=== PATIENT | male | born 1980 | race Hispanic/Latino ===

== ENCOUNTER 2024-06-06 15:36 | Observation (INO) | payer SELFPAY ==
[2024-06-06] MEDS ORDERED: Lidocaine 1% PF 5 ML VIAL ONE (15:55)
[2024-06-06] MEDS ORDERED: CEFAZOLIN 1 GM VIAL ONE (17:41)
[2024-06-06] MEDS ORDERED: Sodium Chloride 0.9% 100 ML ONE (17:41)
[2024-06-06 18:09] LABS: #Basophils 0.04 10x3/uL (0.0-0.2); %Basophils 0.4 % (0.0-1.0); %Eosinophils 1.7 % (0.0-10.0); %Lymphocytes 21.7 % (21.0-51.0); %Monocytes 5.5 % (0.0-10.0); %Neutrophils 70.5 % (42.0-75.0); Hemoglobin 13.9 g/dL (14.0-18.0); Mean Corpuscular HGB CONC 33.1 g/dL (32.0-36.0); Mean Corpuscular Hemoglobin 29.8 pg (27.0-31.0); Mean Corpuscular Volume 90.1 fL (78.0-98.0); Mean Platelet Volume 10.4 fL (7.4-10.4); Platelet Count 324 10x3/uL (130-400); RBC Distribution Width 13.8 % (11.5-14.5); Red Blood Cell (RBC) Count 4.66 mill/uL (4.70-6.10)
[2024-06-06 18:22] LABS: INR-International Normal Ratio 1.1
[2024-06-06 18:24] LABS: ALT (SGPT) 122 U/L (8-55); AST (SGOT) 47 U/L (5-34); Albumin 3.9 g/dL (3.5-5.0); Alkaline Phosphatase 93 U/L (40-110); Anion Gap 12 mmol/L (10-20); BUN (Urea Nitrogen) 13 mg/dL (8.9-20.6); Bilirubin, Total 0.6 mg/dL (0.2-1.2); Calc. Creatinine Clearance 0 mL/min (70-130); Calcium 9.1 mg/dL (7.8-10.44); Carbon Dioxide 25 mmol/L (22-29); Chloride 107 mmol/L (98-107); Estimated GFR 112; Globulin 3.2 g/dL (2.4-3.5); Glucose 100 mg/dL (70-105); Potassium 3.8 mmol/L (3.5-5.1); Protein, Total 7.1 g/dL (6.0-8.3); Sodium 140 mmol/L (136-145)
[2024-06-06] MEDS ORDERED: Dextrose 5% in Water 1,000 ML IV PRN (18:35)
[2024-06-06] MEDS ORDERED: Promethazine HCl 25 MG/ML VIAL IM PRN (18:35)
[2024-06-06] MEDS ORDERED: traMADol HCl 50 MG TAB PO PRN (18:35)
[2024-06-06] MEDS ORDERED: Glucagon 1 MG/ML KIT IM PRN (18:35)
[2024-06-06] MEDS ORDERED: hydrALAZINE 20 MG/ML VIAL SLOW IVP PRN (18:35)
[2024-06-06] MEDS ORDERED: Dextrose 50% Abboject 50 ML SYRINGE SLOW IVP PRN (18:35)
[2024-06-06] MEDS ORDERED: Ondansetron PF 4 MG/2 ML Vial IVP PRN (18:35)
[2024-06-06] MEDS ORDERED: Morphine 2 MG/ML VIAL SLOW IVP PRN (18:35)
[2024-06-06 19:49] VITALS: BMI 38.0
[2024-06-06] MEDS: Famotidine/PF 20 mg/2ml Vial SLOW IVP SCH (19:59)
[2024-06-06] MEDS: GENTAMICIN SULFATE IVPB SCH (19:59)
[2024-06-06] MEDS: ADMIXTURE FEE IVPB SCH (19:59)
[2024-06-06] MEDS: SODIUM CHLORIDE IVPB SCH (19:59)
[2024-06-06] MEDS: Sodium Chloride 0.9% 1,000 ML IV SCH (19:59)
[2024-06-06] MEDS: CEFAZOLIN 2 GM in Sodium Chloride 0.9% 100 ML IVPB SCH (21:35)
[2024-06-07] MEDS: Acetaminophen 325 MG TAB PO PRN (05:28)
[2024-06-07 07:04] LABS: #Basophils 0.04 10x3/uL (0.0-0.2); %Basophils 0.5 % (0.0-1.0); %Eosinophils 2.4 % (0.0-10.0); %Lymphocytes 26.7 % (21.0-51.0); %Neutrophils 63.2 % (42.0-75.0); Hematocrit 41.9 % (42.0-52.0); Hemoglobin 13.8 g/dL (14.0-18.0); Mean Corpuscular HGB CONC 32.9 g/dL (32.0-36.0); Mean Corpuscular Hemoglobin 29.6 pg (27.0-31.0); Mean Corpuscular Volume 89.9 fL (78.0-98.0); Mean Platelet Volume 10.4 fL (7.4-10.4); Platelet Count 326 10x3/uL (130-400); RBC Distribution Width 13.9 % (11.5-14.5); Red Blood Cell (RBC) Count 4.66 mill/uL (4.70-6.10)
[2024-06-07 07:46] LABS: Anion Gap 11 mmol/L (10-20); BUN (Urea Nitrogen) 8 mg/dL (8.9-20.6); Calc. Creatinine Clearance 195 mL/min (70-130); Calcium 8.7 mg/dL (7.8-10.44); Carbon Dioxide 25 mmol/L (22-29); Chloride 108 mmol/L (98-107); Estimated GFR 111; Glucose 102 mg/dL (70-105); Potassium 3.9 mmol/L (3.5-5.1); Sodium 140 mmol/L (136-145)
[2024-06-07] MEDS ORDERED: Bupivacaine PF 0.5% 30 ML VIAL ONE (07:47)
[2024-06-07] MEDS ORDERED: Bacitracin Zinc Ointment 30 gm TUBE ONE (07:47)
[2024-06-07] MEDS ORDERED: Midazolam HCl 2 mg/2 ml Vial ONE (11:33)
[2024-06-07] MEDS ORDERED: fentaNYL 50 mcg/mL 1 mL Vial ONE (11:33)
[2024-06-07] MEDS ORDERED: Ketorolac Tromethamine 30 MG (1 mL) VIAL ONE (12:39)
[2024-06-07] MEDS ORDERED: ADMIXTURE FEE IVPB SCH (20:00)
[2024-06-07] MEDS ORDERED: GENTAMICIN SULFATE IVPB SCH (20:00)
[2024-06-07] MEDS ORDERED: SODIUM CHLORIDE IVPB SCH (20:00)
[2024-06-07 20:41] VITALS: BP 139/80; TEMP 98
== END 2024-06-07 20:50 | disposition home or self-care (01) ==
LOC: ERS 15:36 → SURG A 18:02
PROVIDERS: ADMIT Surgery; ATTEND Surgery
PROC: 0HQQXZZ Repair Finger Nail, External Approach (ICD-10-PCS; principal; 2024-06-07)
PROC: 0XQPXZZ Repair Left Index Finger, External Approach (ICD-10-PCS; 2024-06-07)
DX: S62.631B Displaced fracture of distal phalanx of left index finger, initial encounter for open fracture (principal); G47.33 Obstructive sleep apnea (adult) (pediatric); Z79.899 Other long term (current) drug therapy
CPT/HCPCS: 36415; 80048; 80053; 80170; 85025; 85610; 85730; 96375; 96376; A6223; G0378; J0665; J0690; J1580; J1885; J2250; J3010; J3490; J7030